=== PATIENT | female | born 1990 | race Hispanic/Latino ===

== ENCOUNTER 2024-02-23 20:50 | Inpatient (IN) | payer SELFPAY ==
[~2024-02-23] VITALS: Ht 160 cm; Wt 82.6 kg
[2024-02-23 21:55] LABS: APPEARANCE,URINE CLOUDY (CLEAR); BILIRUBIN,URINE NEGATIVE (NEGATIVE); COLOR,URINE LIGHT-YELLOW (YELLOW); GLUCOSE, URINE (UA) NEGATIVE (NEGATIVE); KETONES,URINE NEGATIVE (NEGATIVE); LEUKOCYTE ESTERASE ,URINE 75 Leu/uL (NEGATIVE); NITRATE,URINE NEGATIVE (NEGATIVE); OCCULT BLOOD,URINE MODERATE (NEGATIVE); PH,URINE 7.5 (5.0-8.0); PROTEIN,URINE 20 mg/dL (NEGATIVE); UROBILINOGEN,URINE 0.2 mg/dL (0.2-1.0)
[2024-02-23 21:56] LABS: ADD UA MICROSCOPIC YES
[2024-02-23 21:58] LABS: BACTERIA,URINE RARE /HPF (None Seen); MUCUS,URINE RARE LPF (None Seen); SQUAMOUS EPITHELIAL CELL,UR FEW /HPF (0-2)
[2024-02-23 22:02] LABS: HEMATOCRIT 39.6 % (36-48); MEAN CORPUSCULAR HEMOGLOBIN 30.7 pg (27.0-33.0); MEAN CORPUSCULAR HGB CONC 33.3 g/dL (32.0-36.0); MEAN CORPUSCULAR VOLUME 92.1 fL (79-99); RED BLOOD CELL COUNT(AUTO) 4.3 MIL/uL (4.00-5.50); RED CELL DISTRIBUTION WIDTH 14.5 % (11.0-15.5); WHITE BLOOD COUNT (AUTO) 8.4 K/uL (4.8-10.8)
[2024-02-23] MEDS: AMPICILLIN 2GM+NS 100ML IV ONE (22:11)
[2024-02-23] MEDS: LACTATED RINGERS 1000ML 1,000 ML IV PRN (22:11)
[2024-02-23] MEDS ORDERED: EPHEDRINE SULFATE 50 MG/ML AMPULE IVP PRN (22:30)
[2024-02-23] MEDS ORDERED: PROMETHAZINE HCL 25 MG/ML 1ML AMPULE IM PRN (22:30)
[2024-02-23] MEDS ORDERED: NALOXONE HCL 0.4 MG/1 ML ML IV PRN (22:30)
[2024-02-23] MEDS ORDERED: LACTATED RINGERS 500 ML 500 ML IV PRN (22:30)
[2024-02-23] MEDS ORDERED: MEPERIDINE-PF 50 MG/ML SYG IVP PRN (22:30)
[2024-02-23 22:36] LABS: HIV 1&2 ANTIBODY Non-Reactive (Negative); HIV-1 p24 Antigen Non-Reactive (Negative)
[2024-02-24] MEDS ORDERED: AMPICILLIN 1GM+NS 50ML IV ONE
[2024-02-24] MEDS: ROPIVACAINE 0.2% 2MG/ML 100ML VIAL EP SCH (00:20)
[2024-02-24] MEDS ORDERED: MISOPROSTOL 200 MCG TABLET ONE ×2 (01:29)
[2024-02-24] MEDS ORDERED: ACETAMINOPHEN 325 MG TAB PO PRN (02:00)
[2024-02-24] MEDS: LIDOCAINE HCL 1% 20 ML VIAL ONE (02:00)
[2024-02-24] MEDS ORDERED: ACETAMINOPHEN WITH CODEINE 1 TAB TAB PO PRN (02:00)
[2024-02-24] MEDS ORDERED: MEASLES/MUMPS/RUBELLA VACCINE, LIVE 0.5 ML/VIAL SQ PRN (02:00)
[2024-02-24] MEDS ORDERED: DIPH,PERTUSS(ACELL),TET VAC/PF 0.5 ML VIAL IM PRN (02:00)
[2024-02-24] MEDS: OXYTOCIN-LR 30 UNITS/500ML 500 ML IV SCH ×2 (02:01→06:15)
[2024-02-24] MEDS: BENZOCAINE/LANOLIN/ALOE VERA 60 ML AEROSOL TP PRN (03:22)
[2024-02-24] MEDS: WITCH HAZEL 1 PAD TP PRN (03:23)
[2024-02-24] MEDS: LANOLIN 30GM OINTMENT TP PRN (03:24)
[2024-02-24 04:30] VITALS: BP 104/56; PULSE 64; RESP 18
[2024-02-24 08:00] VITALS: BP 111/65; PULSE 77; RESP 18
[2024-02-24] MEDS: DOCUSATE SODIUM 100 MG CAP PO SCH (10:07)
[2024-02-24] MEDS: IBUPROFEN 600 MG TABLET PO PRN (10:07)
[2024-02-24 11:44] VITALS: BP 113/77; PULSE 60; RESP 18
[2024-02-24 14:00] LABS: RAPID PLASMA REAGIN NONREACTIVE (NONREACTIVE)
[2024-02-24 15:45] VITALS: BP 112/69; PULSE 79; RESP 18
[2024-02-24 19:53] VITALS: BP 111/67; PULSE 77; RESP 18
[2024-02-25 00:13] VITALS: BP 110/58; PULSE 75; RESP 18
[2024-02-25 04:44] VITALS: BP 112/68; PULSE 68; RESP 18
[2024-02-25 06:54] LABS: HEMATOCRIT 35.7 % (36-48); MEAN CORPUSCULAR HEMOGLOBIN 30.8 pg (27.0-33.0); MEAN CORPUSCULAR HGB CONC 33.1 g/dL (32.0-36.0); MEAN CORPUSCULAR VOLUME 93.2 fL (79-99); RED BLOOD CELL COUNT(AUTO) 3.83 MIL/uL (4.00-5.50); RED CELL DISTRIBUTION WIDTH 14.6 % (11.0-15.5); WHITE BLOOD COUNT (AUTO) 8.9 K/uL (4.8-10.8)
[2024-02-25 07:30] VITALS: BP 105/60; PULSE 76; RESP 18
[2024-02-25] MEDS ORDERED: PREN1TAB80 PO (08:51)
== END 2024-02-25 09:55 | disposition home or self-care (01) | DRG 807 ==
LOC: EDH 20:50 → OBSVTOIN 21:10 → LDH 21:10 → WSH 02-24 04:30
PROVIDERS: ADMIT Obstetrics & Gynecology; ATTEND Obstetrics & Gynecology
PROC: 10E0XZZ Delivery of Products of Conception, External Approach (ICD-10-PCS; principal; 2024-02-24)
PROC: 0KQM0ZZ Repair Perineum Muscle, Open Approach (ICD-10-PCS; 2024-02-24)
PROC: 10907ZC Drainage of Amniotic Fluid, Therapeutic from Products of Conception, Via Natural or Artificial Opening (ICD-10-PCS; 2024-02-24)
PROC: 3E0R3BZ Introduction of Anesthetic Agent into Spinal Canal, Percutaneous Approach (ICD-10-PCS; 2024-02-24)
PROC: 00HU33Z Insertion of Infusion Device into Spinal Canal, Percutaneous Approach (ICD-10-PCS; 2024-02-24)
DX: O99.824 Streptococcus B carrier state complicating childbirth (principal); Z37.0 Single live birth; O70.1 Second degree perineal laceration during delivery; O77.0 Labor and delivery complicated by meconium in amniotic fluid; Z3A.39 39 weeks gestation of pregnancy
CPT/HCPCS: 36415; 81001; 85027; 86592; 86701; 86850; 86900; 86901; 87086; 87340; 87390; A4314; G0378; J0290; J2795; J7120